=== PATIENT | female | born 1960 | race Caucasian/White ===

== ENCOUNTER 2018-01-10 16:53 | Inpatient (IN) | payer MEDICAID ==
[~2018-01-10] VITALS: Ht 165.1 cm; Wt 80.5 kg
[2018-01-10 18:54] LABS: BASOPHILS % (AUTO) 0.3 % (0-1); EOSINOPHILS # (AUTO) 0.1 X10'3 (0-0.9); EOSINOPHILS % (AUTO) 0.8 % (0-6); HEMOGLOBIN 13.9 g/dl (12.0-16.0); LYMPHOCYTES # (AUTO) 3.8 X10'3 (1.1-4.8); LYMPHOCYTES % (AUTO) 30.7 % (21-51); MEAN CORPUSCULAR HEMOGLOBIN 32.5 PG (27.0-31.0); MEAN CORPUSCULAR VOLUME 95.6 FL (78-98); MONOCYTES # (AUTO) 0.7 X10'3 (0-0.9); MONOCYTES % (AUTO) 5.9 % (2-12); NEUTROPHILS # (AUTO) 7.7 X10'3 (1.8-7.7); NEUTROPHILS % (AUTO) 62.3 % (42-75); PLATELET COUNT 756 X10'3 (140-440); RED BLOOD COUNT 4.28 X10'6 (4.20-5.60); WHITE BLOOD COUNT 12.4 X10'3 (4.5-11.0)
[2018-01-10 19:09] LABS: ALANINE AMINOTRANSFERASE 24 U/L (12-78); ALBUMIN 2.9 G/DL (3.4-5.0); ALBUMIN/GLOBULIN RATIO 0.6 (1.1-1.5); ALKALINE PHOSPHATASE 108 IU/L (46-116); ANION GAP 12 (8-16); ASPARTATE AMINO TRANSFERASE 20 U/L (10-37); BILIRUBIN,TOTAL 0.2 MG/DL (0.1-1.0); BLOOD UREA NITROGEN 9 MG/DL (7-18); BUN/CREATININE RATIO 14.3 (6.6-38.0); CALCIUM 9.4 MG/DL (8.5-10.1); CHLORIDE 104 MMOL/L (99-107); CREATININE 0.63 MG/DL (0.40-0.90); GLUCOSE 93 MG/DL (70-104); SODIUM 142 MMOL/L (135-145); TOTAL CARBON DIOXIDE 25.9 MMOL/L (24-32); TOTAL PROTEIN 7.9 G/DL (6.4-8.2); eGFR > 90 ML/MIN
[2018-01-10 19:48] LABS: LARGE PLATELETS FEW; PLATELET ESTIMATE INCREASED
[2018-01-10] MEDS: diatr meglu/diatrizoate 30ml oral sol.-(3 dose) bottle PO SCH ×2 (21:19→22:09)
[2018-01-10 21:50] LABS: PROTHROMBIN TIME 9.9 SECONDS (9.0-12.0)
[2018-01-10 22:03] LABS: CLARITY,URINE Clear (Clear); COLOR,URINE Yellow (Yellow); GLUCOSE, URINE Negative (Neg); KETONES,URINE Negative (Neg); LEUKOCYTE ESTERASE ,URINE Negative (Neg); NITRITES, URINE Negative (Neg); OCCULT BLOOD,URINE Negative (Neg); PH,URINE 5.5 (4.8-8.0); PROTEIN,URINE Negative (Neg)
[2018-01-10 22:16] LABS: UA COLLECTION TYPE CLN CATCH MIDSTREAM
[2018-01-10] MEDS ORDERED: iohexol 300mg/ml 100ml inj. ONE (22:33)
[2018-01-11] MEDS ORDERED: piperacillin/tazo 3.375gm/50ml 50 ML IV ONE
[2018-01-11] MEDS ORDERED: normal saline 1000ML IV soln IV ONE
[2018-01-11] MEDS ORDERED: vancomycin/NS 1 GM ADD-VANTAGE 250 ML IV ONE (00:05)
[2018-01-11] MEDS ORDERED: morphine 4 MG/ML inj SYRINge IV PRN (01:05)
[2018-01-11] MEDS ORDERED: potassium Cl 40MEQ/NS 500ml 500 ML IV PRN ×2 (01:05)
[2018-01-11] MEDS ORDERED: ondansetron/PF 4mg/2ml inj IV PRN (01:05)
[2018-01-11] MEDS ORDERED: potassium Cl 20 mEq SR tablet PO PRN (01:05)
[2018-01-11] MEDS: normal saline 1000ml 1,000 ML IV SCH ×3 (02:12→19:28)
[2018-01-11] MEDS: K and/or MAG REPLACEMENT MC SCH (08:00)
[2018-01-11] MEDS ORDERED: LEVO150T8 (11:58)
[2018-01-11] MEDS ORDERED: HYDR-3972 (11:58)
[2018-01-11] MEDS ORDERED: ATOR20TA66 (11:58)
[2018-01-11] MEDS ORDERED: ASPI-1265 PO (11:58)
[2018-01-11 12:13] VITALS: BP 103/66
[2018-01-11] MEDS: acetaminophen 325mg tablet PO PRN ×2 (15:17→20:47)
[2018-01-11] MEDS: piperacillin/tazo 3.375gm/50ml 50 ML IV SCH ×2 (16:27→19:26)
[2018-01-11] MEDS: vancomycin/NS 1 GM ADD-VANTAGE 250 ML IV SCH (17:01)
[2018-01-11 20:00] VITALS: BP 119/77
[2018-01-12] VITALS (7 sets, daily range): BP systolic 95–128; BP diastolic 61–97
[2018-01-12] MEDS: vancomycin/NS 1 GM ADD-VANTAGE 250 ML IV SCH ×2 (00:12→08:29)
[2018-01-12] MEDS: piperacillin/tazo 3.375gm/50ml 50 ML IV SCH ×4 (02:24→19:56)
[2018-01-12] MEDS: normal saline 1000ml 1,000 ML IV SCH ×2 (02:27→16:58)
[2018-01-12 05:11] LABS: BASOPHILS # (AUTO) 0.1 X10'3 (0-0.2); BASOPHILS % (AUTO) 0.7 % (0-1); EOSINOPHILS % (AUTO) 0.4 % (0-6); HEMATOCRIT 34.7 % (35.0-45.0); HEMOGLOBIN 11.8 g/dl (12.0-16.0); LYMPHOCYTES # (AUTO) 2.4 X10'3 (1.1-4.8); LYMPHOCYTES % (AUTO) 20.6 % (21-51); MEAN CORPUSCULAR HEMOGLOBIN 32.6 PG (27.0-31.0); MEAN CORPUSCULAR HGB CONC 34.1 % (33.0-36.5); MEAN CORPUSCULAR VOLUME 95.6 FL (78-98); MEAN PLATELET VOLUME 7.1 FL (7.4-10.4); MONOCYTES # (AUTO) 0.9 X10'3 (0-0.9); MONOCYTES % (AUTO) 7.4 % (2-12); NEUTROPHILS # (AUTO) 8.3 X10'3 (1.8-7.7); NEUTROPHILS % (AUTO) 70.9 % (42-75); PLATELET COUNT 712 X10'3 (140-440); RED BLOOD COUNT 3.63 X10'6 (4.20-5.60); RED CELL DISTRIBUTION WIDTH 12.7 % (11.5-14.5); WHITE BLOOD COUNT 11.6 X10'3 (4.5-11.0)
[2018-01-12 05:27] LABS: ALBUMIN 2.3 G/DL (3.4-5.0); ANION GAP 12 (8-16); BLOOD UREA NITROGEN 8 MG/DL (7-18); BUN/CREATININE RATIO 11.8 (6.6-38.0); CALCIUM 8.4 MG/DL (8.5-10.1); CHLORIDE 108 MMOL/L (99-107); CREATININE 0.68 MG/DL (0.40-0.90); GLUCOSE 76 MG/DL (70-104); POTASSIUM 3.4 MMOL/L (3.5-5.1); SODIUM 144 MMOL/L (135-145); TOTAL CARBON DIOXIDE 24.1 MMOL/L (24-32); eGFR 89 ML/MIN
[2018-01-12] MEDS: aspirin 81mg tab.chew PO SCH (07:35)
[2018-01-12] MEDS: levoTHYROXINE 75mcg tablet PO SCH (07:35)
[2018-01-12] MEDS: potassium Cl 20 mEq SR tablet PO PRN (07:35)
[2018-01-12] MEDS: K and/or MAG REPLACEMENT MC SCH (08:29)
[2018-01-12 09:28] LABS: C DIFF ANTIGEN NEGATIVE (NEGATIVE); C DIFF SPECIMEN=DIARRHEA? ACCEPTABLE; C DIFFICILE TOXINS A&B NEGATIVE (Neg)
[2018-01-12] MEDS ORDERED: LIDOcaine 1%/PF (10mg/ml) 5ml vial ONE (13:57)
[2018-01-12] MEDS ORDERED: VANCOMYCIN LEVEL IV ONE (15:30)
[2018-01-12] MEDS: vancomycin inj 1,250 MG in normal saline 250ml IV soln 250 ML IV SCH (17:28)
[2018-01-12] MEDS: HYDROcodone/acetaminophen 5mg/325mg tablet PO PRN (21:31)
[2018-01-13] VITALS (10 sets, daily range): BP systolic 97–160; BP diastolic 57–89
[2018-01-13] MEDS: vancomycin inj 1,250 MG in normal saline 250ml IV soln 250 ML IV SCH ×3 (00:56→17:46)
[2018-01-13] MEDS: piperacillin/tazo 3.375gm/50ml 50 ML IV SCH ×4 (02:31→20:08)
[2018-01-13] MEDS: potassium Cl 20 mEq SR tablet PO PRN (02:32)
[2018-01-13] MEDS: normal saline 1000ml 1,000 ML IV SCH ×3 (03:04→23:04)
[2018-01-13 05:01] LABS: BASOPHILS # (AUTO) 0.2 X10'3 (0-0.2); BASOPHILS % (AUTO) 2.3 % (0-1); EOSINOPHILS # (AUTO) 0.1 X10'3 (0-0.9); EOSINOPHILS % (AUTO) 1.2 % (0-6); HEMATOCRIT 33.8 % (35.0-45.0); HEMOGLOBIN 11.4 g/dl (12.0-16.0); LYMPHOCYTES # (AUTO) 3.3 X10'3 (1.1-4.8); LYMPHOCYTES % (AUTO) 32.9 % (21-51); MEAN CORPUSCULAR HEMOGLOBIN 32.3 PG (27.0-31.0); MEAN CORPUSCULAR HGB CONC 33.6 % (33.0-36.5); MEAN PLATELET VOLUME 7.2 FL (7.4-10.4); MONOCYTES % (AUTO) 9.5 % (2-12); NEUTROPHILS # (AUTO) 5.4 X10'3 (1.8-7.7); NEUTROPHILS % (AUTO) 54.1 % (42-75); PLATELET COUNT 685 X10'3 (140-440); RED BLOOD COUNT 3.52 X10'6 (4.20-5.60)
[2018-01-13 05:19] LABS: ALBUMIN 2.2 G/DL (3.4-5.0); ANION GAP 6 (8-16); BLOOD UREA NITROGEN 10 MG/DL (7-18); BUN/CREATININE RATIO 13.9 (6.6-38.0); CALCIUM 8.4 MG/DL (8.5-10.1); CHLORIDE 110 MMOL/L (99-107); CREATININE 0.72 MG/DL (0.40-0.90); GLUCOSE 95 MG/DL (70-104); POTASSIUM 3.8 MMOL/L (3.5-5.1); SODIUM 143 MMOL/L (135-145); TOTAL CARBON DIOXIDE 26.6 MMOL/L (24-32); eGFR 83 ML/MIN
[2018-01-13] MEDS: levoTHYROXINE 75mcg tablet PO SCH (07:58)
[2018-01-13] MEDS: HYDROcodone/acetaminophen 5mg/325mg tablet PO PRN (08:00)
[2018-01-13] MEDS: K and/or MAG REPLACEMENT MC SCH (08:00)
[2018-01-13] MEDS: aspirin 81mg tab.chew PO SCH (08:00)
[2018-01-13 11:24] LABS: BASOPHILS # (AUTO) 0.2 X10'3 (0-0.2); BASOPHILS % (AUTO) 1.5 % (0-1); EOSINOPHILS % (AUTO) 0.4 % (0-6); MEAN CORPUSCULAR HEMOGLOBIN 32.7 PG (27.0-31.0); MEAN CORPUSCULAR HGB CONC 33.9 % (33.0-36.5); MEAN CORPUSCULAR VOLUME 96.4 FL (78-98); MEAN PLATELET VOLUME 7.2 FL (7.4-10.4); MONOCYTES # (AUTO) 0.7 X10'3 (0-0.9); MONOCYTES % (AUTO) 6.9 % (2-12); NEUTROPHILS # (AUTO) 7.5 X10'3 (1.8-7.7); NEUTROPHILS % (AUTO) 72.2 % (42-75); PRE OP HEMATOCRIT 35.2 % (35.0-45.0); PRE OP HEMOGLOBIN 11.9 g/dL (12.0-16.0); PRE OP PLATELET COUNT 674 X10'3 (140-440); RED BLOOD COUNT 3.65 X10'6 (4.20-5.60); RED CELL DISTRIBUTION WIDTH 13.2 % (11.5-14.5)
[2018-01-13 11:32] LABS: PRE OP PROTIME 10.3 SECONDS (9.0-12.0)
[2018-01-13 11:36] LABS: ALBUMIN 2.5 G/DL (3.4-5.0); ALBUMIN/GLOBULIN RATIO 0.6 (1.1-1.5); ALKALINE PHOSPHATASE 80 IU/L (46-116); BLOOD UREA NITROGEN 8 MG/DL (7-18); BUN/CREATININE RATIO 11.4 (6.6-38.0); CALCIUM 8.6 MG/DL (8.5-10.1); CHLORIDE 111 MMOL/L (99-107); PRE OP ALT 19 U/L (30-65); PRE OP ANION GAP 8 (8-16); PRE OP AST 16 U/L (10-37); PRE OP BILIRUB, TOTAL 0.3 MG/DL (0.0-1.0); PRE OP GLUCOSE 107 MG/DL (70-104); PRE OP POTASSIUM 3.7 MMOL/L (3.4-5.1); PRE OP SODIUM 144 MMOL/L (135-145); TOTAL CARBON DIOXIDE 25.1 MMOL/L (24-32); TOTAL PROTEIN 6.6 G/DL (6.4-8.2); eGFR 86 ML/MIN
[2018-01-13] MEDS ORDERED: VANCOMYCIN LEVEL IV NR (16:30)
[2018-01-13] MEDS ORDERED: clindamycin phosphate 150mg/ml inj. ONE (17:59)
[2018-01-13] MEDS ORDERED: gentamicin 40 MG/1 ML inj ONE (17:59)
[2018-01-13] MEDS ORDERED: ondansetron/PF 4mg/2ml inj ONE ×2 (20:44→20:59)
[2018-01-13] MEDS ORDERED: fentaNYL/PF 50MCG/1 ML 2ML syringe ONE (20:44)
[2018-01-13] MEDS ORDERED: propofol 10mg/ml 20ml vial IV ONE (20:44)
[2018-01-13] MEDS ORDERED: fentaNYL /PF 50mcg/ml 5ml ampule ONE (20:44)
[2018-01-13] MEDS ORDERED: glycopyrrolate 0.2mg/ml inj ONE (20:44)
[2018-01-13] MEDS ORDERED: midazolam 2 mg/2 ml injection ONE (20:44)
[2018-01-13] MEDS ORDERED: LIDOcaine 2% (20mg/ml) 5ml vial ONE (20:44)
[2018-01-13] MEDS ORDERED: rocuronium 10mg/ml inj IV ONE (20:44)
[2018-01-13] MEDS ORDERED: dexamethasone sod phosphate 4mg/ml inj. ONE (20:59)
[2018-01-13] MEDS ORDERED: CADD PCA waste documentation MC PRN (22:30)
[2018-01-13] MEDS ORDERED: ketorolac tromethamine 15mg/ml inj. IV PRN (22:30)
[2018-01-13] MEDS ORDERED: naloxone 0.4 mg/ml inj IV PRN (22:30)
[2018-01-13] MEDS: HYDROmorphone/NS 1 mg/ml CADD 50 ML IV SCH ×2 (23:18→23:30)
[2018-01-13] MEDS ORDERED: acetaminophen 1,000mg/100ml IV 100 ML IV SCH (23:55)
[2018-01-14] VITALS (10 sets, daily range): BP systolic 90–120; BP diastolic 55–68
[2018-01-14] MEDS: HYDROmorphone/NS 1 mg/ml CADD 50 ML IV SCH ×12 (01:00→23:00)
[2018-01-14] MEDS: vancomycin inj 1,250 MG in normal saline 250ml IV soln 250 ML IV SCH (01:49)
[2018-01-14] MEDS ORDERED: acetaminophen 1,000mg/100ml IV 100 ML IV SCH (02:00)
[2018-01-14] MEDS: piperacillin/tazo 3.375gm/50ml 50 ML IV SCH ×4 (02:56→21:05)
[2018-01-14 05:29] LABS: BASOPHILS % (AUTO) 0.4 % (0-1); EOSINOPHILS # (AUTO) 0.1 X10'3 (0-0.9); EOSINOPHILS % (AUTO) 1.1 % (0-6); HEMATOCRIT 32.6 % (35.0-45.0); LYMPHOCYTES # (AUTO) 1.1 X10'3 (1.1-4.8); LYMPHOCYTES % (AUTO) 12.1 % (21-51); MEAN CORPUSCULAR HEMOGLOBIN 32.5 PG (27.0-31.0); MEAN CORPUSCULAR HGB CONC 33.8 % (33.0-36.5); MEAN CORPUSCULAR VOLUME 96.2 FL (78-98); MEAN PLATELET VOLUME 7.2 FL (7.4-10.4); MONOCYTES # (AUTO) 0.1 X10'3 (0-0.9); MONOCYTES % (AUTO) 1.4 % (2-12); NEUTROPHILS # (AUTO) 7.6 X10'3 (1.8-7.7); PLATELET COUNT 665 X10'3 (140-440); RED BLOOD COUNT 3.39 X10'6 (4.20-5.60)
[2018-01-14 05:43] LABS: ALBUMIN 2.2 G/DL (3.4-5.0); ANION GAP 9 (8-16); BLOOD UREA NITROGEN 6 MG/DL (7-18); BUN/CREATININE RATIO 7.6 (6.6-38.0); CALCIUM 8.4 MG/DL (8.5-10.1); CHLORIDE 107 MMOL/L (99-107); CREATININE 0.79 MG/DL (0.40-0.90); GLUCOSE 127 MG/DL (70-104); SODIUM 144 MMOL/L (135-145); eGFR 75 ML/MIN
[2018-01-14] MEDS: K and/or MAG REPLACEMENT MC SCH (08:00)
[2018-01-14] MEDS: Dakins solution (1/4 strength) 473ml solution TP SCH (08:00)
[2018-01-14] MEDS: aspirin 81mg tab.chew PO SCH (08:27)
[2018-01-14] MEDS: levoTHYROXINE 75mcg tablet PO SCH (08:27)
[2018-01-14] MEDS: normal saline 1000ml 1,000 ML IV SCH ×3 (09:04→22:24)
[2018-01-14] MEDS: vancomycin/NS 1 GM ADD-VANTAGE 250 ML IV SCH ×2 (09:57→18:01)
[2018-01-14] MEDS ORDERED: ketorolac trometh. 30mg/ml inj. IV PRN (18:08)
[2018-01-15] VITALS: BP 98/52
[2018-01-15] MEDS: HYDROmorphone/NS 1 mg/ml CADD 50 ML IV SCH ×6 (01:00→11:00)
[2018-01-15] MEDS: vancomycin/NS 1 GM ADD-VANTAGE 250 ML IV SCH ×2 (01:00→09:12)
[2018-01-15] MEDS: piperacillin/tazo 3.375gm/50ml 50 ML IV SCH ×4 (02:25→20:15)
[2018-01-15] MEDS: Dakins solution (1/4 strength) 473ml solution TP SCH ×2 (03:01→08:00)
[2018-01-15 07:09] VITALS: BP 95/59
[2018-01-15] MEDS: aspirin 81mg tab.chew PO SCH (07:25)
[2018-01-15] MEDS: levoTHYROXINE 75mcg tablet PO SCH (07:25)
[2018-01-15] MEDS ORDERED: VANCOMYCIN LEVEL IV NR (08:30)
[2018-01-15] MEDS: K and/or MAG REPLACEMENT MC SCH (08:49)
[2018-01-15 09:49] LABS: ALBUMIN 2.2 G/DL (3.4-5.0); ANION GAP 9 (8-16); BASOPHILS # (AUTO) 0.1 X10'3 (0-0.2); BLOOD UREA NITROGEN 9 MG/DL (7-18); CALCIUM 8.3 MG/DL (8.5-10.1); CHLORIDE 108 MMOL/L (99-107); CREATININE 1.28 MG/DL (0.40-0.90); EOSINOPHILS # (AUTO) 0.1 X10'3 (0-0.9); EOSINOPHILS % (AUTO) 0.5 % (0-6); GLUCOSE 129 MG/DL (70-104); HEMATOCRIT 33.4 % (35.0-45.0); HEMOGLOBIN 11.3 g/dl (12.0-16.0); LYMPHOCYTES # (AUTO) 3.6 X10'3 (1.1-4.8); LYMPHOCYTES % (AUTO) 30.1 % (21-51); MEAN CORPUSCULAR HEMOGLOBIN 32.6 PG (27.0-31.0); MEAN CORPUSCULAR HGB CONC 33.9 % (33.0-36.5); MEAN CORPUSCULAR VOLUME 96.1 FL (78-98); MEAN PLATELET VOLUME 7.5 FL (7.4-10.4); MONOCYTES # (AUTO) 0.8 X10'3 (0-0.9); NEUTROPHILS # (AUTO) 7.3 X10'3 (1.8-7.7); NEUTROPHILS % (AUTO) 61.4 % (42-75); PLATELET COUNT 648 X10'3 (140-440); POTASSIUM 3.1 MMOL/L (3.5-5.1); RED BLOOD COUNT 3.47 X10'6 (4.20-5.60); RED CELL DISTRIBUTION WIDTH 13.3 % (11.5-14.5); SODIUM 144 MMOL/L (135-145); eGFR 43 ML/MIN
[2018-01-15 09:51] LABS: VANCOMYCIN,TROUGH 24.1 UG/ML (6.0-14.0)
[2018-01-15 11:00] VITALS: BP 108/68
[2018-01-15] MEDS ORDERED: magnesium Cl slow-release 64mg tablet PO PRN (11:05)
[2018-01-15] MEDS ORDERED: magnesium 4gm in 100ml NS 100 ML IV PRN (11:05)
[2018-01-15] MEDS ORDERED: magnesium 2GM in 50ml NS 50 ML IV PRN (11:05)
[2018-01-15] MEDS ORDERED: potassium Cl 20 mEq SR tablet PO PRN (11:05)
[2018-01-15] MEDS ORDERED: potassium Cl 40MEQ/NS 500ml 500 ML IV PRN ×2 (11:05)
[2018-01-15] MEDS: potassium Cl 20 mEq SR tablet PO PRN ×3 (11:26→22:21)
[2018-01-15] MEDS ORDERED: CADD PCA waste documentation MC PRN (12:40)
[2018-01-15] MEDS: HYDROcodone/acetaminophen 5mg/325mg tablet PO PRN (13:23)
[2018-01-15] MEDS: VANCOMYCIN 750MG IV in NS 250 ML IV SCH (16:49)
[2018-01-15] MEDS: HYDROcodone/acetaminophen 10/325mg tab PO PRN ×2 (17:40→22:34)
[2018-01-15] MEDS ORDERED: LACTOSE-FREE FOOD 237ML (BOOST) PO SCH (18:00)
[2018-01-15 20:00] VITALS: BP 99/66
[2018-01-15] MEDS: lactobacillus rhamnosus 10,000 MMU CELLS/CAPSULE PO SCH (20:15)
[2018-01-16] VITALS: BP 97/59
[2018-01-16] MEDS: Dakins solution (1/4 strength) 473ml solution TP SCH (00:27)
[2018-01-16] MEDS: VANCOMYCIN 750MG IV in NS 250 ML IV SCH ×3 (01:10→17:00)
[2018-01-16] MEDS: piperacillin/tazo 3.375gm/50ml 50 ML IV SCH ×4 (02:49→20:04)
[2018-01-16] MEDS: HYDROcodone/acetaminophen 10/325mg tab PO PRN ×4 (02:49→20:03)
[2018-01-16] MEDS: normal saline 1000ml 1,000 ML IV SCH (02:52)
[2018-01-16 05:30] LABS: BASOPHILS # (AUTO) 0.2 X10'3 (0-0.2); BASOPHILS % (AUTO) 1.4 % (0-1); EOSINOPHILS # (AUTO) 0.1 X10'3 (0-0.9); EOSINOPHILS % (AUTO) 0.6 % (0-6); HEMATOCRIT 33.2 % (35.0-45.0); HEMOGLOBIN 11.1 g/dl (12.0-16.0); LYMPHOCYTES # (AUTO) 2.9 X10'3 (1.1-4.8); LYMPHOCYTES % (AUTO) 26.3 % (21-51); MEAN CORPUSCULAR HEMOGLOBIN 32.4 PG (27.0-31.0); MEAN CORPUSCULAR HGB CONC 33.4 % (33.0-36.5); MEAN CORPUSCULAR VOLUME 97.2 FL (78-98); MEAN PLATELET VOLUME 7.7 FL (7.4-10.4); MONOCYTES # (AUTO) 1.1 X10'3 (0-0.9); MONOCYTES % (AUTO) 10.3 % (2-12); NEUTROPHILS # (AUTO) 6.8 X10'3 (1.8-7.7); NEUTROPHILS % (AUTO) 61.4 % (42-75); PLATELET COUNT 609 X10'3 (140-440); RED BLOOD COUNT 3.42 X10'6 (4.20-5.60); RED CELL DISTRIBUTION WIDTH 13.2 % (11.5-14.5)
[2018-01-16 05:46] LABS: ALBUMIN 2.1 G/DL (3.4-5.0); ANION GAP 8 (8-16); BLOOD UREA NITROGEN 12 MG/DL (7-18); BUN/CREATININE RATIO 8.6 (6.6-38.0); CALCIUM 8.6 MG/DL (8.5-10.1); CHLORIDE 111 MMOL/L (99-107); GLUCOSE 103 MG/DL (70-104); MAGNESIUM 1.7 MG/DL (1.5-2.4); POTASSIUM 3.7 MMOL/L (3.5-5.1); SODIUM 146 MMOL/L (135-145); TOTAL CARBON DIOXIDE 27.3 MMOL/L (24-32); eGFR 39 ML/MIN
[2018-01-16] MEDS: K and/or MAG REPLACEMENT MC SCH (07:39)
[2018-01-16 07:40] VITALS: BP 105/59
[2018-01-16] MEDS: aspirin 81mg tab.chew PO SCH (07:45)
[2018-01-16] MEDS: levoTHYROXINE 75mcg tablet PO SCH (07:45)
[2018-01-16] MEDS: lactobacillus rhamnosus 10,000 MMU CELLS/CAPSULE PO SCH ×2 (07:45→20:03)
[2018-01-16 11:00] VITALS: BP 96/59
[2018-01-16] MEDS ORDERED: polyethylene glycol 3350 17gm powd pack PO PRN (12:00)
[2018-01-16] MEDS ORDERED: docusate sod 100mg capsule PO ONE (12:00)
[2018-01-16] MEDS ORDERED: magnesium hydroxide 30ml (MOM) UD suspension PO ONE ×2 (12:00→16:30)
[2018-01-16] MEDS ORDERED: VANCOMYCIN LEVEL IV ONE (16:30)
[2018-01-16 19:56] VITALS: BP 105/72
[2018-01-16] MEDS: docusate sod 100mg capsule PO SCH (20:03)
[2018-01-16 23:00] VITALS: BP 110/61
[2018-01-17] MEDS: HYDROcodone/acetaminophen 10/325mg tab PO PRN ×6 (00:22→23:59)
[2018-01-17] MEDS ORDERED: VANCOMYCIN 750MG IV in NS 250 ML IV ONE (00:25)
[2018-01-17] MEDS: piperacillin/tazo 3.375gm/50ml 50 ML IV SCH ×4 (02:40→19:18)
[2018-01-17 05:50] LABS: MAGNESIUM 1.8 MG/DL (1.5-2.4); POTASSIUM 3.3 MMOL/L (3.5-5.1)
[2018-01-17 07:29] VITALS: BP 107/70
[2018-01-17] MEDS: K and/or MAG REPLACEMENT MC SCH (07:53)
[2018-01-17] MEDS: lactobacillus rhamnosus 10,000 MMU CELLS/CAPSULE PO SCH ×2 (07:55→19:21)
[2018-01-17] MEDS: aspirin 81mg tab.chew PO SCH (07:55)
[2018-01-17] MEDS: levoTHYROXINE 75mcg tablet PO SCH (07:56)
[2018-01-17] MEDS: potassium Cl 20 mEq SR tablet PO PRN ×2 (07:57→23:59)
[2018-01-17] MEDS: docusate sod 100mg capsule PO SCH ×2 (07:57→19:21)
[2018-01-17] MEDS: Dakins solution (1/4 strength) 473ml solution TP SCH (08:00)
[2018-01-17] MEDS: VANCOMYCIN 750MG IV in NS 250 ML IV SCH ×2 (08:53→21:27)
[2018-01-17 10:33] LABS: ANION GAP 10 (8-16); BLOOD UREA NITROGEN 11 MG/DL (7-18); BUN/CREATININE RATIO 8.3 (6.6-38.0); CALCIUM 8.4 MG/DL (8.5-10.1); CHLORIDE 110 MMOL/L (99-107); CREATININE 1.32 MG/DL (0.40-0.90); GLUCOSE 98 MG/DL (70-104); SODIUM 145 MMOL/L (135-145); TOTAL CARBON DIOXIDE 25.4 MMOL/L (24-32); eGFR 41 ML/MIN
[2018-01-17 11:00] VITALS: BP 112/68
[2018-01-17 19:32] VITALS: BP 106/68
[2018-01-18] VITALS: BP 114/78
[2018-01-18] MEDS: normal saline 1000ml 1,000 ML IV SCH (01:23)
[2018-01-18] MEDS: piperacillin/tazo 3.375gm/50ml 50 ML IV SCH ×6 (01:23→19:43)
[2018-01-18] MEDS: HYDROcodone/acetaminophen 10/325mg tab PO PRN ×4 (04:14→21:40)
[2018-01-18 05:21] LABS: MAGNESIUM 1.8 MG/DL (1.5-2.4); POTASSIUM 3.5 MMOL/L (3.5-5.1)
[2018-01-18 07:33] VITALS: BP 140/71
[2018-01-18 07:35] VITALS: BP 105/68
[2018-01-18] MEDS: lactobacillus rhamnosus 10,000 MMU CELLS/CAPSULE PO SCH ×2 (07:56→19:43)
[2018-01-18] MEDS: aspirin 81mg tab.chew PO SCH (07:56)
[2018-01-18] MEDS: docusate sod 100mg capsule PO SCH ×2 (07:56→19:44)
[2018-01-18] MEDS: levoTHYROXINE 75mcg tablet PO SCH (07:57)
[2018-01-18] MEDS: K and/or MAG REPLACEMENT MC SCH (08:00)
[2018-01-18] MEDS: Dakins solution (1/4 strength) 473ml solution TP SCH (08:00)
[2018-01-18] MEDS: VANCOMYCIN 750MG IV in NS 250 ML IV SCH ×2 (08:58→20:30)
[2018-01-18 11:12] VITALS: BP 113/75
[2018-01-18 19:50] VITALS: BP 105/58
[2018-01-19] VITALS: BP 94/66
[2018-01-19] MEDS: piperacillin/tazo 3.375gm/50ml 50 ML IV SCH ×4 (02:21→20:09)
[2018-01-19] MEDS: HYDROcodone/acetaminophen 5mg/325mg tablet PO PRN ×4 (02:22→20:10)
[2018-01-19 04:42] VITALS: BP 112/65
[2018-01-19] MEDS: Dakins solution (1/4 strength) 473ml solution TP SCH (06:17)
[2018-01-19] MEDS: levoTHYROXINE 75mcg tablet PO SCH (06:23)
[2018-01-19 07:30] VITALS: BP 122/81
[2018-01-19] MEDS ORDERED: VANCOMYCIN LEVEL IV NR (07:30)
[2018-01-19 07:40] LABS: BASOPHILS % (AUTO) 0.5 % (0-1); EOSINOPHILS # (AUTO) 0.2 X10'3 (0-0.9); EOSINOPHILS % (AUTO) 2.6 % (0-6); HEMOGLOBIN 10.5 g/dl (12.0-16.0); LYMPHOCYTES # (AUTO) 2.8 X10'3 (1.1-4.8); LYMPHOCYTES % (AUTO) 33.9 % (21-51); MEAN CORPUSCULAR HEMOGLOBIN 32.4 PG (27.0-31.0); MEAN CORPUSCULAR HGB CONC 33.8 % (33.0-36.5); MEAN CORPUSCULAR VOLUME 95.9 FL (78-98); MEAN PLATELET VOLUME 7.2 FL (7.4-10.4); MONOCYTES # (AUTO) 0.8 X10'3 (0-0.9); MONOCYTES % (AUTO) 9.8 % (2-12); NEUTROPHILS # (AUTO) 4.4 X10'3 (1.8-7.7); NEUTROPHILS % (AUTO) 53.2 % (42-75); PLATELET COUNT 645 X10'3 (140-440); RED BLOOD COUNT 3.23 X10'6 (4.20-5.60); RED CELL DISTRIBUTION WIDTH 13.9 % (11.5-14.5); WHITE BLOOD COUNT 8.2 X10'3 (4.5-11.0)
[2018-01-19 07:55] LABS: ALANINE AMINOTRANSFERASE 17 U/L (12-78); ALBUMIN 2.2 G/DL (3.4-5.0); ALBUMIN/GLOBULIN RATIO 0.6 (1.1-1.5); ALKALINE PHOSPHATASE 69 IU/L (46-116); ANION GAP 8 (8-16); ASPARTATE AMINO TRANSFERASE 14 U/L (10-37); BILIRUBIN,TOTAL 0.2 MG/DL (0.1-1.0); BLOOD UREA NITROGEN 9 MG/DL (7-18); BUN/CREATININE RATIO 7.1 (6.6-38.0); CALCIUM 8.8 MG/DL (8.5-10.1); CHLORIDE 108 MMOL/L (99-107); CREATININE 1.26 MG/DL (0.40-0.90); GLUCOSE 100 MG/DL (70-104); MAGNESIUM 1.9 MG/DL (1.5-2.4); POTASSIUM 3.5 MMOL/L (3.5-5.1); SODIUM 144 MMOL/L (135-145); TOTAL CARBON DIOXIDE 27.7 MMOL/L (24-32); eGFR 44 ML/MIN
[2018-01-19] MEDS: VANCOMYCIN 750MG IV in NS 250 ML IV SCH (08:00)
[2018-01-19] MEDS: K and/or MAG REPLACEMENT MC SCH (08:00)
[2018-01-19] MEDS: docusate sod 100mg capsule PO SCH ×2 (08:30→20:09)
[2018-01-19] MEDS: aspirin 81mg tab.chew PO SCH (08:30)
[2018-01-19] MEDS: lactobacillus rhamnosus 10,000 MMU CELLS/CAPSULE PO SCH ×2 (08:30→20:09)
[2018-01-19 11:00] VITALS: BP 112/76
[2018-01-19 11:30] VITALS: BP 112/76
[2018-01-19] MEDS ORDERED: HYDROmorphone 2mg tablet PO ONE (19:10)
[2018-01-19 20:00] VITALS: BP 114/65
[2018-01-19] MEDS ORDERED: vancomycin inj 500 MG in normal saline 100ml IV soln 100 ML IV SCH (20:00)
[2018-01-19] MEDS: vancomycin inj 500 MG in dextrose 5%-water 100 ML IV SCH (20:09)
[2018-01-20] VITALS: BP 118/77
[2018-01-20] MEDS ORDERED: MORPHINE 2MG in 2ml NS syringe IV PRN (02:10)
[2018-01-20] MEDS: HYDROmorphone 2mg tablet PO ONE ×2 (03:03→03:07)
[2018-01-20] MEDS: normal saline 1000ml 1,000 ML IV SCH (03:03)
[2018-01-20] MEDS: piperacillin/tazo 3.375gm/50ml 50 ML IV SCH ×3 (03:05→14:48)
[2018-01-20 05:24] LABS: BASOPHILS # (AUTO) 0.1 X10'3 (0-0.2); BASOPHILS % (AUTO) 0.9 % (0-1); EOSINOPHILS # (AUTO) 0.3 X10'3 (0-0.9); EOSINOPHILS % (AUTO) 2.7 % (0-6); HEMOGLOBIN 11.4 g/dl (12.0-16.0); LYMPHOCYTES % (AUTO) 26.3 % (21-51); MEAN CORPUSCULAR HEMOGLOBIN 32.2 PG (27.0-31.0); MEAN CORPUSCULAR HGB CONC 33.4 % (33.0-36.5); MEAN CORPUSCULAR VOLUME 96.2 FL (78-98); MEAN PLATELET VOLUME 7.7 FL (7.4-10.4); MONOCYTES # (AUTO) 1.1 X10'3 (0-0.9); MONOCYTES % (AUTO) 9.6 % (2-12); NEUTROPHILS # (AUTO) 6.8 X10'3 (1.8-7.7); NEUTROPHILS % (AUTO) 60.5 % (42-75); PLATELET COUNT 691 X10'3 (140-440); RED BLOOD COUNT 3.54 X10'6 (4.20-5.60); RED CELL DISTRIBUTION WIDTH 13.5 % (11.5-14.5); WHITE BLOOD COUNT 11.3 X10'3 (4.5-11.0)
[2018-01-20] MEDS ORDERED: acetaminophen 325mg tablet PO PRN ×2 (05:25)
[2018-01-20 06:06] LABS: ALANINE AMINOTRANSFERASE 22 U/L (12-78); ALBUMIN 2.5 G/DL (3.4-5.0); ALBUMIN/GLOBULIN RATIO 0.6 (1.1-1.5); ALKALINE PHOSPHATASE 77 IU/L (46-116); ANION GAP 11 (8-16); ASPARTATE AMINO TRANSFERASE 17 U/L (10-37); BILIRUBIN,TOTAL 0.3 MG/DL (0.1-1.0); BLOOD UREA NITROGEN 10 MG/DL (7-18); CALCIUM 8.9 MG/DL (8.5-10.1); CHLORIDE 107 MMOL/L (99-107); CREATININE 1.25 MG/DL (0.40-0.90); GLUCOSE 99 MG/DL (70-104); POTASSIUM 3.4 MMOL/L (3.5-5.1); SODIUM 145 MMOL/L (135-145); TOTAL CARBON DIOXIDE 27.4 MMOL/L (24-32); TOTAL PROTEIN 6.7 G/DL (6.4-8.2); eGFR 44 ML/MIN
[2018-01-20 07:00] VITALS: BP 121/73
[2018-01-20] MEDS: Dakins solution (1/4 strength) 473ml solution TP SCH (07:58)
[2018-01-20] MEDS: K and/or MAG REPLACEMENT MC SCH (08:00)
[2018-01-20] MEDS ORDERED: potassium Cl 20 mEq SR tablet PO PRN (08:05)
[2018-01-20] MEDS ORDERED: potassium Cl 40MEQ/NS 500ml 500 ML IV PRN ×2 (08:05)
[2018-01-20] MEDS: vancomycin inj 500 MG in dextrose 5%-water 100 ML IV SCH (08:23)
[2018-01-20] MEDS: aspirin 81mg tab.chew PO SCH (08:23)
[2018-01-20] MEDS: levoTHYROXINE 75mcg tablet PO SCH (08:24)
[2018-01-20] MEDS: potassium Cl 20 mEq SR tablet PO PRN ×3 (08:24→16:05)
[2018-01-20] MEDS: lactobacillus rhamnosus 10,000 MMU CELLS/CAPSULE PO SCH (08:25)
[2018-01-20] MEDS: docusate sod 100mg capsule PO SCH (08:25)
[2018-01-20] MEDS: HYDROcodone/acetaminophen 10/325mg tab PO PRN ×2 (08:30→14:56)
[2018-01-20 12:21] VITALS: BP 114/75
[2018-01-21] MEDS ORDERED: VANCOMYCIN LEVEL IV ONE (07:30)
== END 2018-01-20 18:00 | DRG 711 ==
LOC: ER 16:54 → ED HOLD 01-11 01:04 → EDBEDREQ 01-11 05:57 → SUR 3N 01-11 10:18
PROVIDERS: ADMIT Family Medicine; ATTEND Surgery
PROC: BW211ZZ Computerized Tomography (CT Scan) of Abdomen and Pelvis using Low Osmolar Contrast (ICD-10-PCS; 2018-01-10)
PROC: 0W9F30Z Drainage of Abdominal Wall with Drainage Device, Percutaneous Approach (ICD-10-PCS; 2018-01-12)
PROC: 0WPF0JZ Removal of Synthetic Substitute from Abdominal Wall, Open Approach (ICD-10-PCS; principal; 2018-01-13 20:59)
DX: T85.79XA Infection and inflammatory reaction due to other internal prosthetic devices, implants and grafts, initial encounter (principal); A41.9 Sepsis, unspecified organism; L02.211 Cutaneous abscess of abdominal wall; R18.8 Other ascites; L03.311 Cellulitis of abdominal wall; E03.9 Hypothyroidism, unspecified; E78.5 Hyperlipidemia, unspecified; F12.90 Cannabis use, unspecified, uncomplicated; F17.210 Nicotine dependence, cigarettes, uncomplicated; Z96.649 Presence of unspecified artificial hip joint; M19.90 Unspecified osteoarthritis, unspecified site; E87.6 Hypokalemia; D47.3 Essential (hemorrhagic) thrombocythemia; Z88.5 Allergy status to narcotic agent; Z82.0 Family history of epilepsy and other diseases of the nervous system; Y92.89 Other specified places as the place of occurrence of the external cause; Y83.2 Surgical operation with anastomosis, bypass or graft as the cause of abnormal reaction of the patient, or of later complication, without mention of misadventure at the time of the procedure
CPT/HCPCS: 10030; 36415; 71045; 74177; 80048; 80053; 80202; 81003; 83605; 83735; 84132; 84145; 84443; 85025; 85610; 85730; 87040; 87070; 87077; 87186; 87324; 87449; 93005; 96365; 96368; 99285; A4649; A6212; A6213; A6253; A6255; A6257; A6446; A6449; A7000; C1758; J0131; J1100; J1170; J1580; J2001; J2250; J2270; J2405; J2543; J2704; J3010; J3370; J3490; J7030; J7060; J7120; Q9963; Q9967

== ENCOUNTER 2018-01-11 10:06 | Outpatient (CLI) | payer MEDICAID ==
[~2018-01-11 10:06] MED LIST: iohexol 300mg/ml 100ml inj. ONE
[2018-01-11] MEDS ORDERED: LEVO150T8 (11:58)
[2018-01-11] MEDS ORDERED: ASPI-1265 PO (11:58)
[2018-01-11] MEDS ORDERED: HYDR-3972 (11:58)
[2018-01-11] MEDS ORDERED: ATOR20TA66 (11:58)
[2018-01-13] MEDS ORDERED: ringers solution, lacted 1,000 ML IV SCH (20:44)
[2018-01-13] MEDS ORDERED: hydrALAZINE 20mg/ml inj. IV PRN (20:45)
[2018-01-13] MEDS ORDERED: labetalol 5mg/ml 20ml inj. IV PRN (20:45)
[2018-01-13] MEDS ORDERED: fentaNYL/PF 50MCG/1 ML 2ML syringe IV PRN ×2 (20:45)
[2018-01-13] MEDS ORDERED: ondansetron/PF 4mg/2ml inj IV PRN (20:45)
[2018-01-13] MEDS ORDERED: morphine 4 MG/ML inj SYRINge IV PRN ×2 (20:45)
[2018-01-13] MEDS ORDERED: midazolam 2 mg/2 ml injection ONE (20:51)
[2018-01-13] MEDS ORDERED: fentaNYL /PF 50mcg/ml 5ml ampule ONE (20:53)
[2018-01-13] MEDS ORDERED: rocuronium 10mg/ml inj IV ONE ×2 (20:54→22:12)
[2018-01-13] MEDS ORDERED: propofol inj 20 ML IV ONE (20:55)
[2018-01-13] MEDS ORDERED: ondansetron/PF 4mg/2ml inj ONE (20:55)
[2018-01-13] MEDS ORDERED: LIDOcaine 2% (20mg/ml) 5ml vial ONE (20:55)
[2018-01-13] MEDS ORDERED: glycopyrrolate 0.2mg/ml inj ONE (21:52)
[2018-01-13] MEDS ORDERED: fentaNYL/PF 50MCG/1 ML 2ML syringe ONE (22:12)
== END 2018-01-11 10:07 | disposition home or self-care (01) ==
LOC: WOUND CARE 10:06 → EDSTATUS 10:30 → WOUND CARE 23:59
PROVIDERS: ATTEND Surgery
DX: T81.89XD Other complications of procedures, not elsewhere classified, subsequent encounter (principal)
CPT/HCPCS: J2001; J2250; J2405; J2704; J3010; J3490; J7030; Q9967